=== PATIENT | male | born 1995 ===

== ENCOUNTER 2019-01-26 09:54 | Emergency (ER) | payer SELFPAY ==
[2019-01-26 10:02] VITALS: BP 128/78
[2019-01-26 10:23] LABS: Bilirubin,Urine NEG (Negative); Blood,Urine NEG (Negative); Color,Urine Yellow (Yellow); Mucus,Urine FEW /HPF; Protein,Urine <15 mg/dL mg/dL (Negative); Urobilinogen,Urine < 2.0 mg/dL (<2.0)
--- NOTE | 2019-01-26 10:47 | Emergency Department Report ---
ED Male HPI - General Chief complaint: Abdominal Pain Stated complaint: LT SIDE PAIN Time Seen by Provider: 01/26/19 10:26 Source: patient, service delivery manager Mode of arrival: Ambulatory Limitations: No Limitations - History of Present Illness Initial comments: 23-year-old male presents to the emergency room complaining of left lower abdomen and groin pain for a while. Patient reports that about 6 months. Patient reports worsening. Patient denies nausea vomiting or diarrhea. Last bowel movement was last night. Patient reports that ibuprofen makes the pain better or makes it worse is walking and standing and sitting for too long. Patient reports that the pain is sharp and constant. Is able to reduce at times. Onset/Timin -: month(s) Location: left inguinal region Severity scale (0 -10): 7 Quality: sharp Consistency: constant Improves with: none Worsens with: movement, other (standing, walking, sitting too long.) lifting denies other symptoms - Related Data Previous Rx's Medication Instructions Recorded Last Taken Type Ibuprofen [Motrin 800 MG tab] 800 mg PO Q8HR PRN #30 tablet 01/26/19 Unknown Rx Allergies Allergy/AdvReac Type Severity Reaction Status Date / Time No Known Allergies Allergy Unverified 01/26/19 09:56 ED Review of Systems ROS: Stated complaint: LT SIDE PAIN Other details as noted in HPI Comment: All other systems reviewed and negative ED Past Medical Hx - Past Medical History Previous Medical History?: No - Surgical History Past Surgical History?: No - Social History Smoking Status: Current Some Day Smoker Substance Use Type: Alcohol - Medications Home Medications: Home Medications Medication Instructions Recorded Confirmed Last Taken Type Ibuprofen [Motrin 800 MG tab] 800 mg PO Q8HR PRN #30 tablet 01/26/19 Unknown Rx ED Physical Exam - General Limitations: No Limitations General appearance: alert, in no apparent distress - Head Head exam: Present: atraumatic, normocephalic - Eye Eye exam: Present: normal appearance - ENT ENT exam: Present: mucous membranes moist - exam: Present: other (swelling on the mons pubis at the left side). Absent: testicular tenderness, scrotal swelling - Neurological Exam Neurological exam: Present: alert, oriented X3 - Psychiatric Psychiatric exam: Present: normal affect, normal mood - Skin Skin exam: Present: warm, dry, intact, normal color. Absent: rash ED Course Vital Signs 01/26/19 09:59 Temperature 98.3 F Pulse Rate 55 L Respiratory 16 Rate Blood Pressure 128/78 O2 Sat by Pulse 100 Oximetry ED Medical Decision Making - Medical Decision Making 23-year-old male presents to the emergency room complaining of left lower abdomen and groin pain for a while. Patient reports that about 6 months. Patient reports worsening. Patient denies nausea vomiting or diarrhea. Last bowel movement was last night. Patient reports that ibuprofen makes the pain better or makes it worse is walking and standing and sitting for too long. Patient reports that the pain is sharp and constant. Patient was offered pain medication but declined. Constipation we will refer him to general surgeon for further evaluation. Is able to reduce at times. Critical care attestation.: If time is entered above; I have spent that time in minutes in the direct care of this critically ill patient, excluding procedure time. ED Disposition Clinical Impression: Inguinal hernia, left Disposition: [id number] TO HOME OR SELFCARE Is pt being admited?: No Does the pt Need Aspirin: No Condition: Stable Instructions: Inguinal Hernia (ED) Additional Instructions: Take pain medication as prescribed. It is very important for you to follow while with a general surgeon I have listed one below it them a call in the next 24-48 hours. [place] los analgsicos segn lo prescrito. Es muy importante que siga mientras que con un cirujano general he enumerado addison debajo de l, kade llamada en las prximas 24-48 horas Prescriptions: Ibuprofen [Motrin 800 MG tab] 800 mg PO Q8HR PRN #30 tablet PRN Reason: Pain , Severe (7-10) Referrals: BAN KWON DO [Staff Physician] - 3-5 Days RICHARD DE ULNA MD [Staff Physician] - 3-5 Days Forms: Work/School Release Form(ED), Accompanied Note Print Language: [place]ONG K[place]
== END 2019-01-26 11:12 | disposition home or self-care (01) ==
LOC: ED 09:54
DX: K40.90 Unilateral inguinal hernia, without obstruction or gangrene, not specified as recurrent (principal); F17.200 Nicotine dependence, unspecified, uncomplicated
CPT/HCPCS: 81001; 99283